=== PATIENT | female | born 1995 | race Caucasian/White ===

== ENCOUNTER 2021-05-21 13:49 | Emergency (ER) | payer OTHER, SELFPAY ==
[2021-05-21 14:00] VITALS: BP 129/79; PULSE 92; RESP 16; TEMP 36.8; O2SAT 100
--- NOTE | 2021-05-21 14:18 | ED.EYEPROB ---
HPI - Eye Problem General Chief complaint: Eye Problems Stated complaint: Eye Pain Source: patient and RN notes reviewed Limitations: no limitations History of Present Illness HPI Narrative: The unvaccinated patient, who does not wear contacts/glasses, presents with a 5-day history of left eye redness with scant discharge. Symptoms are mild, and is slightly worse in the morning with blinking. No fever, URI?sinusitis, earache, sore throat photophobia, injury, FB sensation; patient advised to follow-up with eye doctor Related Data Home Medications Medication Instructions Recorded Confirmed buprenorphine-naloxone [Suboxone] 1 tablet SUBLINGUAL DAILY 05/21/21 05/21/21 Allergies Allergy/AdvReac Type Severity Reaction Status Date / Time No Known Allergies Allergy Unverified 05/21/21 14:02 Review of Systems Review of Systems: General/Constitutional: No weight loss,fever Eyes: REPORTS redness,discharge Ears/Nose/Throat: No: Epistaxis,ear discharge Respiratory: Denies: Hemoptysis Gastrointestinal: No Vomiting, Bleeding-rectal Skin: No Lumps, eruption Neurologic: No Focal Weakness,Sz Hematologic: Denies: Petechiae/Purpura Psychiatric: No: Suicida ideationl All Other Systems: Reviewed and Negative PMFSH Comments At time of signature, agree with nursing past medical, surgical, social and family history. There is no relevant family history pertinent to the presenting complaint Exam Narrative: General Appearance: Well appearing, Well nourished, No distress EYE: PERRLA, Mduk-[id number] normal, EOM Lens normal, Normal corneas anterior chamber deep, mild conjunctiva injection Ears: External ear normal, Auditory canal normal Nose: Normal nose, Nares clear Mouth/Throat: Normal appearing, Normal lips Neck: Supple, No adenopathy Respiratory: Airway patent, No respiratory distress Skin: Warm, Dry Neurological: A&O x3, CN II-X intact Psychiatric: Normal mood, Normal affect Course Vital Signs Vital signs: Vital Signs Temperature 98.2 F 05/21/21 14:00 Pulse Rate 92 05/21/21 14:00 Respiratory Rate 16 05/21/21 14:00 Blood Pressure 129/79 05/21/21 14:00 Pulse Oximetry 100 05/21/21 14:00 Temperature 98.2 F 05/21/21 14:00 Pulse Rate 92 05/21/21 14:00 Respiratory Rate 16 05/21/21 14:00 Blood Pressure 129/79 05/21/21 14:00 Pulse Oximetry 100 05/21/21 14:00 Discharge Plan Discharge Clinical Impression: Conjunctivitis Qualifiers: Conjunctivitis type: acute Acute conjunctivitis type: unspecified Laterality: right Qualified Code(s): H10.31 - Unspecified acute conjunctivitis, right eye Patient Disposition: Home, Self-Care Condition: Stable Instructions: Conjunctivitis (ED) Additional Instructions: See eye doctor in follow-up Prescriptions: New prednisone 20 mg tablet 60 mg PO DAILY Qty: 6 RF: 0 tobramycin [Tobrex] 0.3 % drops 2 drp LEFT EYE Q4H Qty: 5 RF: 0 No Action buprenorphine-naloxone [Suboxone] 8-2 mg Tablet, Sublingual 1 tablet SUBLINGUAL DAILY RF: 0 Follow-up/Referrals: Brayden,Lisa Arias MD [Primary Care Provider] -
== END 2021-05-21 14:30 | disposition home or self-care (01) ==
PROVIDERS: Emergency Provider Emergency Medicine; PCP Family Medicine
DX: H10.31 Unspecified acute conjunctivitis, right eye (principal)
CPT/HCPCS: 99213; G0463

== ENCOUNTER 2024-05-13 10:05 | Emergency (ER) | payer SELFPAY ==
[2024-05-13] VITALS (10 sets, daily range): BP systolic 96–122; BP diastolic 49–90; PULSE 52–123; RESP 16–18; TEMP 36.4–36.6; O2SAT 97–100
--- NOTE | ~2024-05-13 | CT_ITS ---
CT brain wo con Ordering provider: Betzaida Puga PA-C History: 28 years Female with . ams . Comparison: January 28, 2016 Technique: CT of the head without contrast. Radiation reduction technique utilized. DLP is 529.67 mGy-cm. FINDINGS: BRAIN PARENCHYMA AND CSF SPACES: No midline shift, mass effect or hemorrhage. The brain parenchyma a nd CSF spaces are otherwise normal. VISUALIZED PARANASAL SINUSES: Well aerated. MASTOIDS: Well aerated. BONES: The bones appear intact. SOFT TISSUES: Visualized nasopharynx is normal. Superficial soft tissues are normal. IMPRESSION: No acute intracranial findings. Reviewed, dictated and finalized at location A.
--- NOTE | 2024-05-13 10:45 | PC.NURSE ---
Patient difficult to redirect. Patient attempting to elope through ambulance bay door. Security called. Patient directed back to room and into stretcher initially, but patient refusing to stay in room. Security outside room for patient safety.
--- NOTE | 2024-05-13 11:00 | PC.NURSE ---
Patient yelling at staff and security when asked to get back into room. Patient attempting to run past staff. Patient asked to go back into room. Patient became physical with staff and security. Security and staff placed patient into stretcher and IM medications were given.
[2024-05-13] MEDS: LORazepam INJ (*CRX) 2 MG/ML VIAL IM (11:07)
[2024-05-13] MEDS: diphenhydrAMINE HCl INJ 50 MG/ML VIAL IM (11:08)
[2024-05-13] MEDS: HALOPERIDOL LACTATE 5 MG/ML VIAL IM (11:08)
--- NOTE | 2024-05-13 11:25 | ECG_ITS ---
Test Date: 2024-05-13 11:44:05 Measurements Intervals Donald Rate: 82 P: 78 WI: 165 QRS: 78 QRSD: 84 T: 77 QT: 402 QTc: 470 Interpretive Statements SINUS RHYTHM POSSIBLE LEFT ATRIAL ENLARGEMENT BASELINE WANDER- II, III, AVF BORDERLINE ECG No previous ECG available for comparison Electronically Signed On 05-13-2024 11:58:42 CDT by Mina Black D.O.
[2024-05-13 11:35] LABS: BEDSIDEPREGUCG Negative (Negative)
[2024-05-13 11:48] LABS: Add Urine Microscopic? YES; Appearance Urine Turbid (Clear); Bacteria Urine 1+ /hpf; Bilirubin Urine Negative (Negative); Blood Urine Negative (Negative); Color Urine Yellow (Yellow); Glucose Urine UA Negative (Negative); Ketones Urine Trace mg/dL (Negative); Leukocyte Esterase Ur Negative LEU/UL (Negative); Nitrate Urine Negative (Negative); Non Pathogenic Casts 0-2; Protein Urine Trace mg/dL (Negative); RBC Urine 0-2 /hpf (0-2); Specific Grav Ur 1.023 (1.001-1.035); Squamous Epithelial Cell Urine Few /hpf (Few); Urobilinogen Urine 0.2 mg/dL (<2.0)
[2024-05-13 12:04] LABS: Basophils Absolute Auto 0.1 K/mm3 (0.0-0.1); Basophils Percent Auto 0.8 % (0.2-1.2); Eosinophils Percent Auto 0.4 % (0-4.4); Hematocrit 35.8 % (37.0-47.0); Immature Granulocyte Absolute 0.03 K/mm3 (0.00-0.031); Immature Granulocyte Percent A 0.4 % (0-0.5); Lymphocytes Absolute Auto 1.37 K/mm3 (0.9-3.2); Mean Corpuscular HGB Conc 33.5 g/dl (32-36); Mean Corpuscular Hemoglobin 29.5 pg (26-34); Monocytes Absolute Auto 0.4 K/mm3 (0.1-0.6); Monocytes Percent Auto 5.4 % (2.6-8.5); Neutrophils Absolute Auto 5.7 K/mm3 (1.3-6.7); Platelet Count Result 348 k/mm3 (150-375); Red Blood Count 4.07 M/mm3 (4.2-5.4); Red Cell Distribution Width 13.4 % (11.5-14.5); White Blood Count 7.6 K/mm3 (4.5-10.0)
[2024-05-13 12:16] LABS: Alanine Aminotransferase 25 U/L (6-35); Albumin Level 4.3 g/dL (3.5-5.1); Alkaline Phosphatase 68 U/L (38-126); Anion Gap 11 mmol/L (4-12); Aspartate Amino Transferase 41 U/L (14-36); Bilirubin,Total 0.6 mg/dL (0.2-1.3); Blood Urea Nitrogen 20 mg/dL (7-17); Calcium 8.9 mg/dL (8.4-10.2); Carbon Dioxide 26 mmol/L (22-30); Chloride 95 mmol/L (98-107); Estimated Glomerular Filt Rate > 60; Glucose 128 mg/dL (65-110); Sodium 132 mmol/L (137-145)
[2024-05-13 12:16] LABS: Acetaminophen < 10 ug/mL (10-30); Ethanol < 10 mg/dL (<10); Salicylate < 1.0 mg/dL (2-20)
[2024-05-13 12:31] LABS: Barbiturate Screen Urine Negative (Negative); Benzodiazepines Screen Urine Negative (Negative)
[2024-05-13 12:32] LABS: Cannabinoid Screen Urine Positive (Negative); Cocaine Screen Urine Negative (Negative); Methadone Screen Urine Negative (Negative); Opiate Screen Urine Negative (Negative); Phencyclidine Screen Urine Negative (Negative)
[2024-05-13 12:51] LABS: Amphetamine Screen Urine Positive (Negative)
[2024-05-13 13:03] LABS: SARS-CoV-2 RNA PCR Negative (Negative)
--- NOTE | 2024-05-13 16:05 | ED.AMS ---
HPI - Altered Mental Status General Chief Complaint: Altered Mental Status <Cielo MartinezJulia Montanez APRN - Last Filed: 05/13/24 20:28> Stated Complaint: altered <Cielo Das UMER Montanez - Last Filed: 05/13/24 20:28> Source: patient <Cielo VegaUMER norman - Last Filed: 05/13/24 20:28> Mode of arrival: EMS <Cieloshannon Montanez APRN - Last Filed: 05/13/24 20:28> Limitations: altered mental status <Cielo MartinezJulia Montanez APRN - Last Filed: 05/13/24 20:28> History of Present Illness HPI narrative: Patient is a 28-year-old female who presents to the ER with altered mental status. She was picked up by the local police department for erratic behavior. EMS arrived and brought pt to the ER for evaluation. Upon arrival, patient is unable to answer questions appropriately. She is agitated, paranoid, and not directable. Patient verbalizes no chest pain, shortness of breath or other signs symptoms of illness. She is convinced she has a splinter in her R foot, but slowly removed her sock and identified she had no injury there. <Cielo Thiago Montanez APRN - Last Filed: 05/13/24 20:28> Related Data Home Medications: Home Medications Medication Instructions Recorded Confirmed buprenorphine 8 mg-naloxone 2 mg 1 tablet sublingual DAILY 05/21/21 05/21/21 sublingual tablet <Cielo Montanez APRN - Last Filed: 05/13/24 20:28> Allergies/Adverse Reactions: Allergies Allergy/AdvReac Type Severity Reaction Status Date / Time No Known Allergies Allergy Verified 05/13/24 15:04 <Cieloshannon Montanez APRN - Last Filed: 05/13/24 20:28> Review of Systems Review of Systems: All systems reviewed & are unremarkable except as noted in HPI and below <Cielo Montanez APRN - Last Filed: 05/13/24 20:28> Exam Narrative: GENERAL: Well appearing, well-nourished, non-toxic, in no acute distress, but agitated. HEAD: Normocephalic, atraumatic. RESPIRATORY: Airway patent, respirations nonlabored. Clear to auscultation bilaterally, no rales, rhonchi, wheezing. CARDIOVASCULAR: Tachycardic regular rhythm without murmurs, rubs, or gallops. Peripheral pulses 2+ and equal bilaterally. ABDOMINAL: Soft, nontender, nondistended, no hepatosplenomegaly. Normoactive BS. MUSCULOSKELETAL: Moves all extremities. Strength/ROM intact without gross deformities. SKIN: Warm, dry, normal color. No rashes. NEURO: Undirectable. Clear speech, but unable to focus enough to carry a conversation. A & O x 1. PSYCHIATRIC: Inappropriate interaction with staff. Pt wandering into hallway and not following verbal instructions. <Cielo Montanez, SURVEY SUPERVISOR - Last Filed: 05/13/24 20:28> Course Course Emergency Course: RG - Care resumed by myself at shift change pending further medical clearance and potential crisis evaluation. Upon my evaluation, patient is somnolent, difficult to arouse, arousing only to painful stimuli/sternal rub. Hardly able to keep eyes open long enough to tell me her name. Protecting her airway. Vitals are stable. I added on a CT brain examination, which was unremarkable. Patient's potassium was also replaced. Patient was moved from room 1 to room 15. She was ambulatory unassisted, but with an unsteady gait, frequently running into lawson. Briefly became somewhat agitated in Rm 15 and demanded to leave, demanding her phone. I went to talk with patient again. She is adamantly denying SI/HI. She is alert and oriented x4. States she just wants to go to her truck at the gas station before it gets towed. She states she knows where her truck is and plans to walk back to her truck. I was able to have a prolonged conversation with patient, however she did fall asleep several times throughout our conversation. I advised that patient is essentially free to leave our facility, however I am not comfortable letting her leave until she is able to demonstrate a steady gait and stay awake throughout a conversation. Madelyn
--- NOTE | 2024-05-13 17:00 | PC.NURSE ---
regular diet precautionary tray ordered
[2024-05-13] MEDS: POTASSIUM CHLORIDE 20 MEQ PACKET (FOR LIQUID) 40 MEQ PO (20:27)
[2024-05-14 05:05] VITALS: BP 132/86; PULSE 91; RESP 14; O2SAT 97
== END 2024-05-14 05:05 | disposition home or self-care (01) ==
PROVIDERS: Physician Assistant; Emergency Provider Registered Nurse; PCP Family Medicine
DX: R45.1 Restlessness and agitation (principal); R41.82 Altered mental status, unspecified; F15.10 Other stimulant abuse, uncomplicated; Z11.52 Encounter for screening for COVID-19; R94.31 Abnormal electrocardiogram [ECG] [EKG]
CPT/HCPCS: 36415; 70450; 80053; 80307; 81001; 81025; 83735; 84443; 85025; 87086; 87635; 93005; 96372; 96374; 99284; A9270; J1200; J1630; J2060